=== PATIENT | male | born 1985 | race Two or more races ===

== ENCOUNTER 2020-01-21 23:40 | Emergency (ER) | payer OTHER ==
[~2020-01-21] VITALS: Ht 165.1 cm; Wt 93.4 kg
[2020-01-22 02:45] VITALS: BP 135/101
== END 2020-01-22 03:02 | disposition home or self-care (01) ==
LOC: ER 23:44
DX: S33.5XXA Sprain of ligaments of lumbar spine, initial encounter (principal); M62.838 Other muscle spasm; M54.2 Cervicalgia; W01.0XXA Fall on same level from slipping, tripping and stumbling without subsequent striking against object, initial encounter; Y93.89 Activity, other specified; Y92.89 Other specified places as the place of occurrence of the external cause; Y99.8 Other external cause status
CPT/HCPCS: 72125; 72131